=== PATIENT | male | born 1990 | race Caucasian/White ===

== ENCOUNTER 2018-01-06 22:43 | Emergency (ER) | payer MEDICAID ==
[~2018-01-06] VITALS: Ht 172.7 cm; Wt 90.7 kg
[2018-01-06 22:57] VITALS: Ht 172.7 cm; Wt 90.7 kg
[2018-01-06 23:43] LABS: CALCIUM 8.3 mg/dL (8.5-10.1); CARBON DIOXIDE 19.4 mmol/L (21-32); CHLORIDE SERUM 102 mmol/L (98-107); GFR1 > 60 mL/min; GLUCOSE SERUM 100 mg/dL (74-106); POTASSIUM SERUM 3.5 mmol/L (3.5-5.1); SODIUM SERUM 138 mmol/L (136-145)
[2018-01-06 23:48] LABS: BASOPHIL % 1.2 % (0-2); PLATELET COUNT 224 x10^3mcL (130-400); RED CELL DISTRIBUTION WIDTH 15.1 % (11.5-14.5)
[2018-01-07 00:09] LABS: ALBUMIN 3.6 g/dL (3.4-5.0); ALKALINE PHOSPHATASE 109 U/L (46-116); ALT/SGPT 29 U/L (16-63); AST/SGOT 43 U/L (15-37); BILIRUBIN TOTAL 0.7 mg/dL (0.20-1.00); TOTAL PROTEIN, SERUM 7.2 g/dL (6.4-8.2)
[2018-01-07 01:11] LABS: AMPHETAMINE QUAL UR POSITIVE (See below)
[2018-01-07 01:31] VITALS: BP 157/87
== END 2018-01-07 01:31 | disposition home or self-care (01) ==
LOC: ED 22:43
PROVIDERS: Emergency Medicine
DX: R00.0 Tachycardia, unspecified (principal); F15.10 Other stimulant abuse, uncomplicated; R11.0 Nausea
CPT/HCPCS: 83880; G0480; J2060; J7030